=== PATIENT | male | born 1990 | race American Indian/Alaskan Native ===

== ENCOUNTER 2018-03-09 07:38 | Inpatient (IN) | payer OTHER ==
[~2018-03-09] VITALS: Ht 172.7 cm; Wt 110.9 kg
[~2018-03-09 07:38] MED LIST: ALBUTEROL SULF8.5 GM INH; FLOMAX0.4 MG PO; PERCOCET 5-3251 EACH PO; ZOFRAN4 MG PO
[2018-03-09] MEDS ORDERED: BENADRYL25 MG PO (14:24)
--- NOTE | 2018-03-10 22:51 | EKG ---
[facility] [address] [facility] [place] [address] Signed Normal sinus rhythm with sinus arrhythmia Normal ECG No previous ECGs available Confirmed by JEROMY ARREDONDO MD ([id number]) on 03/10/2018 10:51:13 PM Electronically Signed By: JEROMY ARREDONDO MD 03/10/18 2251 PATIENT NAME: CODY ROJAS Electrocardiogram DATE OF : 86 PHYSICIAN: JEROMY ARREDONDO MD REPORT #: [id number] REPORT IS CONFIDENTIAL AND NOT TO BE RELEASED WITHOUT AUTHORIZATION
[2018-03-11] MEDS ORDERED: CEPHALEXIN500 MG PO (11:47)
[2018-03-11] MEDS ORDERED: METRONIDAZOLE500 MG PO (11:48)
== END 2018-03-11 12:50 | disposition home or self-care (01) | DRG 392 ==
LOC: ED 07:38 → MS 09:51
PROVIDERS: ADMIT Internal Medicine
DX: K57.32 Diverticulitis of large intestine without perforation or abscess without bleeding (principal); J45.909 Unspecified asthma, uncomplicated
CPT/HCPCS: 36415; 74176; 80048; 81001; 85025; 93005; 93010; 96374; 96375; 99285; J0696; J0744; J0780; J1170; J1650; J1885; J2405; J7030

== ENCOUNTER 2019-12-09 14:37 | Emergency (ER) | payer OTHER ==
[~2019-12-09] VITALS: Ht 172.7 cm; Wt 110.9 kg
[~2019-12-09 14:37] MED LIST changes: +BENADRYL25 MG PO; +CEPHALEXIN500 MG PO; +METRONIDAZOLE500 MG PO
[2019-12-09] MEDS ORDERED: KEPPRA500 MG PO (17:44)
== END 2019-12-09 20:08 | disposition home or self-care (01) ==
LOC: ED 14:37
DX: G40.909 Epilepsy, unspecified, not intractable, without status epilepticus (principal); Z87.891 Personal history of nicotine dependence
CPT/HCPCS: 80053; 83735; 85025; 96361; 96374; 96375; 96376; 99285-25; G0480; J1953; J2060; J7030; J7060

== ENCOUNTER 2020-01-13 09:54 | Emergency (ER) | payer OTHER ==
[~2020-01-13] VITALS: Ht 172.7 cm; Wt 102.3 kg
[~2020-01-13 09:54] MED LIST changes: +KEPPRA500 MG PO
[2020-01-13] MEDS ORDERED: KEPPRA500 MG PO (10:59)
== END 2020-01-13 11:08 | disposition home or self-care (01) ==
LOC: ED 09:54
DX: G40.909 Epilepsy, unspecified, not intractable, without status epilepticus (principal); S01.552A Open bite of oral cavity, initial encounter; X58.XXXA Exposure to other specified factors, initial encounter; Z87.891 Personal history of nicotine dependence; Z79.899 Other long term (current) drug therapy
CPT/HCPCS: 70450; 99284-25

== ENCOUNTER 2020-02-19 12:22 | Emergency (ER) | payer OTHER ==
[~2020-02-19] VITALS: Ht 172.7 cm; Wt 102.3 kg
[2020-02-19] MEDS ORDERED: BENADRYL25 MG PO (12:34)
== END 2020-02-19 13:30 | disposition home or self-care (01) ==
LOC: ED 12:22
DX: S61.412A Laceration without foreign body of left hand, initial encounter (principal); F17.200 Nicotine dependence, unspecified, uncomplicated; J45.909 Unspecified asthma, uncomplicated; W25.XXXA Contact with sharp glass, initial encounter
CPT/HCPCS: 73130; 99283-25

== ENCOUNTER 2021-04-28 20:01 | Emergency (ER) | payer OTHER ==
[~2021-04-28] VITALS: Ht 172.7 cm; Wt 102.3 kg
[2021-04-28] MEDS ORDERED: FLUTICASONE-SA1 EAC4 (20:19)
[2021-04-28] MEDS ORDERED: VENTOLIN HFA18 GM (20:19)
[2021-04-28] MEDS ORDERED: LORATADINE10 MG (20:19)
[2021-04-28] MEDS ORDERED: LEVETIRACETAM1000 MG (20:20)
[2021-04-28] MEDS ORDERED: TRAMADOL HCL50 MG PO (21:17)
== END 2021-04-28 21:43 | disposition home or self-care (01) ==
LOC: ED 20:01
DX: T25.221A Burn of second degree of right foot, initial encounter (principal); X16.XXXA Contact with hot heating appliances, radiators and pipes, initial encounter; J45.909 Unspecified asthma, uncomplicated; Z79.899 Other long term (current) drug therapy
CPT/HCPCS: 99283

== ENCOUNTER 2022-01-04 23:29 | Emergency (ER) | payer OTHER ==
[~2022-01-04] VITALS: Ht 172.7 cm; Wt 104.3 kg
[~2022-01-04 23:29] MED LIST changes: +FLUTICASONE-SA1 EAC4; +LEVETIRACETAM1000 MG; +LORATADINE10 MG; +TRAMADOL HCL50 MG PO; +VENTOLIN HFA18 GM
== END 2022-01-05 00:54 | disposition home or self-care (01) ==
LOC: ED 23:29
DX: G40.409 Other generalized epilepsy and epileptic syndromes, not intractable, without status epilepticus (principal); J45.909 Unspecified asthma, uncomplicated; Z79.899 Other long term (current) drug therapy
CPT/HCPCS: 99284

== ENCOUNTER 2024-07-31 02:47 | Emergency (ER) | payer OTHER ==
[~2024-07-31] VITALS: Ht 172.7 cm; Wt 106.0 kg
[~2024-07-31 02:47] MED LIST changes: +BUDESONIDE-FO10.2 G1 INH; +CALCIUM500 MG PO; +CELECOXIB200 MG PO; +HYDROCODON-ACE1 EA11 PO; +KEPPRA1000 MG PO; +LEVOTHYROXINE75 MCG PO; +ONDANSETRON ODT8 MG PO
[2024-07-31 03:09] LABS: BASOPHILS 0.5 % (0-2); EOSINOPHILS 0.3 % (0-6); HEMATOCRIT 46.5 % (35.0-50.0); HEMOGLOBIN 15.6 g/dL (12.0-18.0); LYMPHOCYTES 12.1 % (24-44); MCH 29.2 (27-36); MCHC 33.5 g/dl (30-36); MCV 87.3 fl (81-99); MONOCYTES 4.9 % (0-12); NEUTROPHILS 82.2 % (39-80); PLATELET COUNT 219 K/uL (140-440); RBC 5.32 M/ul (4.3-5.7); RDW 14.7 (10.5-15.0)
[2024-07-31] MEDS ORDERED: ondansetron HCL 4 MG/2 ML VIAL IV ONE (03:15)
[2024-07-31] MEDS ORDERED: LORazepam 2 MG/ML VIAL IV ONE (03:15)
[2024-07-31] MEDS ORDERED: levETIRAcetam 500 MG/5 ML VIAL IV ONE (03:15)
[2024-07-31] MEDS ORDERED: LACTATED RINGER'S 1,000 ML IV ONE (03:15)
[2024-07-31 03:31] LABS: ALBUMIN 4.2 g/dL (3.4-5.0); ANION GAP 20.4 (7-21); BILIRUBIN, TOTAL 0.7 ng/dL (0.2-1.0); BUN/CREATININE RATIO 8.27 (6.0-28.6); CREATININE, SERUM 1.33 mg/dL (0.70-1.30); POTASSIUM 3.4 mmol/L (3.5-5.1); PROTEIN, TOTAL 8.4 g/dL (6.4-8.2)
[2024-07-31] MEDS ORDERED: ATIVAN0.5 MG PO (05:55)
[2024-07-31 06:40] VITALS: BP 110/71
[2024-08-01 05:09] LABS: KEPPRA (LEVETIRACETAM) 26 ug/mL (10-40)
== END 2024-07-31 07:13 | disposition home or self-care (01) ==
LOC: ED 02:47
PROVIDERS: Family Medicine
DX: G40.909 Epilepsy, unspecified, not intractable, without status epilepticus (principal); Z79.899 Other long term (current) drug therapy
CPT/HCPCS: 36415; 70450; 80053; 80177; 85025; 96361; 96374; 96375; 99284-25; J1953; J2060; J2405; J7121

== ENCOUNTER 2024-11-02 17:29 | Observation (INO) | payer OTHER ==
[~2024-11-02] VITALS: Ht 172.7 cm; Wt 101.4 kg
[~2024-11-02 17:29] MED LIST changes: +ATIVAN0.5 MG PO; -VENTOLIN HFA18 GM; +VENTOLIN HFA18 GM INH
[2024-11-02 18:00] LABS: BASOPHILS 0.2 % (0-2); HEMATOCRIT 49.6 % (35.0-50.0); HEMOGLOBIN 16.4 g/dL (12.0-18.0); LYMPHOCYTES 5.3 % (24-44); MCH 29.1 (27-36); MCHC 33.1 g/dl (30-36); MCV 88.1 fl (81-99); MONOCYTES 5.6 % (0-12); NEUTROPHILS 88.9 % (39-80); PLATELET COUNT 233 K/uL (140-440); RBC 5.63 M/ul (4.3-5.7); RDW 14.2 (10.5-15.0)
[2024-11-02] MEDS ORDERED: KETOROLAC TROMETHAMINE 30 MG/ML VIAL IV ONE (18:00)
[2024-11-02] MEDS ORDERED: levETIRAcetam 500 MG/5 ML VIAL IV ONE (18:00)
[2024-11-02] MEDS ORDERED: SODIUM CHLORIDE 0.9% 1,000 ML IV PRN (18:00)
[2024-11-02 18:13] LABS: ALBUMIN 4.5 g/dL (3.4-5.0); ALBUMIN/GLOBULIN RATIO 1.07 (1.1-2.4); ANION GAP 17.7 (7-21); BILIRUBIN, TOTAL 0.4 ng/dL (0.2-1.0); BUN/CREATININE RATIO 10.15 (6.0-28.6); CREATININE, SERUM 1.28 mg/dL (0.70-1.30); POTASSIUM 3.7 mmol/L (3.5-5.1); PROTEIN, TOTAL 8.7 g/dL (6.4-8.2)
[2024-11-02] MEDS ORDERED: LORazepam 2 MG/ML VIAL ONE (18:26)
[2024-11-02] MEDS ORDERED: LORazepam 2 MG/ML VIAL IV ONE (18:45)
[2024-11-02] MEDS ORDERED: LACTATED RINGER'S 1,000 ML IV ONE (21:15)
[2024-11-02 22:03] LABS: BILIRUBIN, URINE NEGATIVE (negative); BLOOD/HGB, URINE NEGATIVE (Negative); KETONE, URINE SMALL (Negative); LEUK ESTERASE, URINE NEGATIVE (negative); NITRITE, URINE NEGATIVE (negative)
[2024-11-02 22:09] LABS: BACTERIA, URINE NONE SEEN /hpf (negative); CASTS, URINE NONE SEEN \\lpf; COLLECTION TYPE, URINE CLEAN CATCH; CRYSTALS, URINE NONE SEEN (0-1+); EPITHELIAL CELLS, URINE NONE SEEN /lpf (0-1+); RED BLOOD CELLS, URINE 0-1 /hpf (0-5); REFLEX CULTURE, URINE No (No); WHITE BLOOD CELLS, URINE 0-1 /HPF (0-5)
[2024-11-02 22:21] LABS: AMPHETAMINES, URINE NEGATIVE (NEGATIVE); BARBITURATES, URINE NEGATIVE (NEGATIVE); BENZODIAZEPINE, URINE NEGATIVE (NEGATIVE); BUPRENORPHINE, URINE NEGATIVE (NEGATIVE); CANNABINOID, URINE POSITIVE (NEGATIVE); COCAINE, URINE NEGATIVE (NEGATIVE); ECSTASY, URINE NEGATIVE (NEGATIVE); FENTANYL, URINE NEGATIVE (NEGATIVE); METHADONE, URINE NEGATIVE (NEGATIVE); OPIATES, URINE NEGATIVE (NEGATIVE); OXYCODONE, URINE NEGATIVE (NEGATIVE); PHENCYCLIDINE, URINE NEGATIVE (NEGATIVE)
[2024-11-02 23:22] VITALS: BP 118/73
[2024-11-02] MEDS ORDERED: ACETAMINOPHEN 325 MG TAB PO PRN (23:30)
[2024-11-02] MEDS ORDERED: LORazepam 2 MG/ML VIAL IV PRN (23:30)
[2024-11-02] MEDS ORDERED: ondansetron HCL 4 MG/2 ML VIAL IV PRN (23:30)
[2024-11-03] VITALS (20 sets, daily range): BP systolic 96–138; BP diastolic 54–80
--- NOTE | 2024-11-03 00:07 | NUR ---
PATIENT ARRIVED TO UNIT 11/02/24 AT 23:15. BEDSIDE REPORT RECEIVED FROM VIC SENIOR. PATIENT STOOD AND WALKED FROM RNEY TO BED WITH SBA. ORIENTED TO NURSING STAFF, ROOM AND CALL LIGHT FUNCTIONS. REVIEWED PATIENT SAFETY EDUCATION WITH PATIENT AND HIS MOTHER, LINDA. EDUCATION INCLUDED USE OF BED ALARM, SEIZURE PADS, CALL LIGHT USE AND FALL PREVENTION. PATIENT VERBALIZED UNDERSTANDING. IV PATENT AND DRAWS BACK BLOOD EASILY. PATIENT IS AOX3 BUT SLOW TO ANSWER AND DROWSY, HOWEVER, ACTIVELY PARTICIPATED IN ADMISSION AND ASSESSMENT. PATIENT AWARE OF NPO STATUS AND EDUCATION PROVIDED ON SEIZURES AND ASPIRATION RISK. VERBALIZED UNDERSTANDING. REVIEWED POC WITH PATIENT AND MOTHER. BOTH DENY QUESTIONS OR CONCERNS. MOTHER LINDA WENT HOME TO REST. PATIENT CURRENTLY RESTING IN BED AND DESIRES TO SLEEP. BED IN LOWEST POSITION/LOCKED, CALL LIGHT IN REACH, SEIZURE PADS IN PLACE, BED EXIT ALARM ON.
[2024-11-03] MEDS ORDERED: ALBUTEROL SULFATE 0.083% 3 ML VIAL INH PRN (00:45)
--- NOTE | 2024-11-03 00:54 | NUR ---
REVIEWED NPO STATUS WITH DR. KNAPP. ORDER RECEVIED THAT IF PATIENT IS FULLY AWAKE, ALERT, ORIENTED AND ABLE TO TAKE PO WITHOUT CONCERN FOR ASPIRATION, MAY ADVANCE DIET. ORDER ALSO RECEIVED FOR RT EVAL AND TREAT GIVEN HX OF ASTHMA AND NEED FOR O2 IN ED. RT LEAH NOTIFIED OF ORDER. NO NEEDS AT THIS TIME. PATIENT IS RESTING WITH EYES CLOSED, O2 SAT 94% ON RA.
--- NOTE | 2024-11-03 01:58 | NUR ---
PATIENT RESTING IN BED WITH EYES CLOSED. FACIAL EXPRESSION APPEARS RELAXED. RESPIRATIONS EVEN AND UNLABORED. CALL LIGHT IN REACH.
--- NOTE | 2024-11-03 03:05 | NUR ---
PATIENT'S BP READING ERRONEOUSLY. PATIENT FOUND TO BE SIDE LYING WITH ARMS CURLED ON CHEST. PATIENT FOLLOWS REQUEST TO REPOSITION SUPINE FOR PROPER BP READ. VS CHARTED. EDUCATION PROVIDED ON REPOSITIONING ARM TO A RELAXED POSITION WHEN BP CUFF INFLATES. DENIES NEEDS AT THIS TIME. CALL LIGHT IN REACH.
--- NOTE | 2024-11-03 04:17 | NUR ---
PATIENT WAKES EASILY TO NAME AND FOLLOWS DIRECTION TO REPOSITION FOR BP READ. ASSESSMENT CHARTED. PATIENT ENDORSED GENERALIZED ACHINESS. MEDICATED WITH TYLENOL PER EMAR. PATIENT'S LIP NOTED TO BE BRUISED ON INITIAL ASSESSMENT. APPEARS MORE EDEMATOUS. ICE PACK GIVEN. PATIENT VOIDED 600ML YELLOW URINE IN URINAL. WARM WASHCLOTH PROVIDED FOR PATIENT TO WIPE FACE. DENIES OTHER NEEDS AT THIS TIME. BED IN LOWEST POSITION AND LOCKED, CALL LIGHT IN REACH, SEIZURE PADS IN PLACE AND BED EXIT ALARM ON.
[2024-11-03 05:22] LABS: BASOPHILS 0.5 % (0-2); EOSINOPHILS 0.3 % (0-6); HEMATOCRIT 44.7 % (35.0-50.0); LYMPHOCYTES 21.7 % (24-44); MCH 29.4 (27-36); MCHC 33.5 g/dl (30-36); MONOCYTES 7.3 % (0-12); NEUTROPHILS 70.2 % (39-80); PLATELET COUNT 198 K/uL (140-440); RBC 5.08 M/ul (4.3-5.7); RDW 14.1 (10.5-15.0)
--- NOTE | 2024-11-03 05:30 | NUR ---
APPROXIMATELY 0450 PATIENT NOTED TO HAVE AN INCREASED HR TO THE 120S. THIS RN TO ROOM. PATIENT OPENS EYES TO NAME BUT WAS SLOW TO RESPOND AND VERBAL RESPONSES WERE CONFUSED WITH SLURRED SPEACH, DISORIENTED TO ALL EXCEPT SELF. NO INVOLUNTARY OR SPASTIC MOVEMENTS NOTED. NO TREMORS, TWITCHING OR CONVULSING NOTED, HOWEVER, PATIENT PRESENTATION CONSISTENT WITH POST-ICTAL BEHAVIOR. PATIENT COULD FOLLOW DIRECT COMMANDS. THIS RN TOUCHED PATIENTS ARM AND PATIENT HAD A HIGHTENED STARTLE REFLEX. 04:55 DR. KNAPP NOTIFIED, REVIEWED ASSESSMENT. ORDER RECEIVED TO GIVE PRN ATIVAN. CALLED DR. KNAPP BACK TO NOTIFIY OF T[place]A WHILE AT REST THROUGHOUT THE NIGHT. ORDER RECEIVED FOR CHEST XRY. ATIVAN GIVEN PER EMAR. PATIENT RESTING WITH EYES CLOSED AT THIS TIME AND APPEARS TO IN NO ACUTE DISTRESS. SEIZURE PADS REMAIN IN PLACE, CALL LIGHT IN REACH. BED LOW, LOCKED AND EXIT ALARM ON. RR 30, O2 SAT 99 ON 2L OXYMASK.
[2024-11-03 05:32] LABS: ANION GAP 15.5 (7-21); BUN/CREATININE RATIO 9.67 (6.0-28.6); CALCIUM 8.5 mg/dL (8.5-10.1); CREATININE, SERUM 0.93 mg/dL (0.70-1.30); MAGNESIUM 2.2 mg/dL (1.8-2.4); POTASSIUM 3.5 mmol/L (3.5-5.1)
--- NOTE | 2024-11-03 05:53 | NUR ---
PCXRY COMPLETED. PATIENT FOLLOWS DIRECTIONS FOR XRY. IS NOW ALERT TO SELF AND PLACE. PATIENT NOW ON ROOM AIR AT 94-96%.
--- NOTE | 2024-11-03 06:15 | NUR ---
PATIENT NOTED TO AGAIN HAVE AN INCREASE IN HR ON TELEMETRY. THIS RN IMMEDIATELY TO ROOM. PATIENT FOUND TO BE CONFUSED AGAIN, HOLDING HIS RIGHT ARM IN THE AIR AND ROLLING HIS TONGUE AND SMACKING HIS LIPS. OPENED EYES TO NAME BUT APPEARED TO HAVE A NON-SPECIFIC BLANK GAZE. NO OTHER MOVEMENT NOTED. ONCE AT REST, PATIENT DESATTED TO 87-88%, PLACED BACK ON OXYMASK AT 2L. PATIENT NODDED HEAD UP AND DOWN WHEN ASKED IF HE WAS NAUSEATED. ZOFRAN GIVEN PER EMAR. DR. KNAPP NOTIFIED, ORDER RECEIVED TO GIVE PRN ATIVAN AGAIN. GIVEN PER EMAR. PATIENT NOW RESTING IN BED WITH EYES CLOSED. RR 23-27, O2 SAT 97% 2L OXYMASK, HR 85, SINUS RHYTHM.
--- NOTE | 2024-11-03 06:40 | NUR ---
PATIENT'S MOTHER LINDA UPDATED. SHE REPORTS THE ACTIVITY NOTED BY THIS RN IS PTS "NORMAL" AFTER HE HAS HAD A FEW LARGER SEIZURES. SHE REPORTS IT LASTS A FEW HOURS TO A DAY OR SO. LINDA REPORTS IT IS CHARACTERIZED BY CONFUSION, LIP SMACKING AND PATIENT ATTEMPTING TO TOUCH HIS INDEX FINGER TO HIS THUMB. PTS MOTHER TO COME IN THIS AM TO BE HERE WHEN DR. RA WHITTEN.
[2024-11-03] MEDS ORDERED: POTASSIUM CHLORIDE 40 MEQ in DEXTROSE 5% 250 ML IV ONE (07:30)
[2024-11-03] MEDS ORDERED: levETIRAcetam 500 MG/5 ML VIAL IV SCH ×3 (07:30→21:00)
--- NOTE | 2024-11-03 08:38 | NUR ---
ASSESSMENT COMPLETE. PATIENT RESTING IN BED AND SEIZURE PADS REMAIN ON. PT IS DROWSY, BUT DOES AWAKEN EASILY AND IS ORIENTED X4. PT'S MOTHER LINDA IN ROOM. PT GIVEN DOSE OF KEPPRA IV THIS AM BUT WILL RECEIVE MORE, HIS NORMAL HOME DOSE IS HIGHER. NO SEIZURE ACTIVITY THUS FAR B UT WILL CONTINUE TO MONITOR FOR SUCH. PT DENIES NEEDING TO VOID AT THIS TIME. LUNGS ARE CLEAR, BUT PATIENT IS TACHYPNEIC IN THE UPPER 20s TO MID 30s AT TIME. PT DOES ALSO ENDORSE A SORE NECK, RATING IT 8/10.
--- NOTE | 2024-11-03 08:49 | NUR ---
HR NOTED TO BE INCREASED TO THE 120-130s PATIENT WAS REPOSITIONING HIMSELF IN BED. A FEW MOMENTS LATER, SP02 NOTED TO BE DROPPING DOWN TO LOW 77%. PT PROMPTED TO TAKE A COUPLE DEEP BREATHS BUT IS NOTED TO BE APNEIC AT TIMES. OXYGEN REAPPLIED VIA OXYMASK 2 L. PATIENT ALSO BOOSTED IN BED AND SAT UP HIGHER. PATIENT STILL ABLE TO RESPOND, ANSWER QUESTIONS BUT DOES REMAIN DROWSY. DR. KNAPP IN CCU TO SEE PATIENT AND PLAN OF CARE DISCUSSED. KEPPRA DOSE TO BE ADJUSTED UP TO MATCH DOSE HE RECEIVES AT HOME. PT'S MOTHER REMAINS IN ROOM.
[2024-11-03] MEDS ORDERED: levETIRAcetam 500 MG/5 ML VIAL IV STA (08:51)
--- NOTE | 2024-11-03 09:57 | NUR ---
MED REC COMPLETE
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
[2024-11-03] MEDS ORDERED: PHARMACY RENAL DOSE ADJUSTMENT 1 DOSE MISC PO SCH (12:00)
--- NOTE | 2024-11-03 14:15 | NUR ---
PATIENT HAS BEEN RESTING IN BED AFTER LUNCH. PT WAS ABLE TO EAT HIS CHICKEN NOODLE SOUP AND A FEW BITES OF HIS SANDWICH. PT EARLIER HAD STATED HE WAS COLD AND A WARM BLANKET WAS GIVEN. THEN AROUND 1410, PT'S MOTHER SIGNALS THIS RN THAT PT IS STARTING TO DO HIS LIP SMACKING AND FINGER TOUCHING, INDEX FINGER TO HIS THUMB, THAT HE DOES WHEN HE IS SEIZING. DR. KNAPP IN UNIT AND NOTIFIED AND ARRIVES TO BEDSIDE. PRN ATIVAN 2 MG GIVEN. PT IS RESPONSIVE TO HIS NAME AND DOES ANSWER SOME QUESTIONS, BUT IS DEFINTELY MORE DROWSY THAN BEFORE. HR WAS UP TO THE 130s AT IT'S HIGHEST AND IS NOW BACK TO THE 80s. BLANKETS PULLED OFF PATIENT. TEMP 99.1 AT THIS TIME.
--- NOTE | 2024-11-03 15:40 | NUR ---
PATIENT RESTING IN BED, ASLEEP AT THIS TIME. HR IN THE 80s. PT'S MOTHER REMAINS IN ROOM WELL. WILL CONTINUE TO MONITOR.
--- NOTE | 2024-11-03 16:59 | NUR ---
PATIENT HAS BEEN UP IN CHAIR NOW AND IS WAITING FOR DINNER. PATIENT AMBULATED IN HALLWAY EARLIER WITH THIS RN A STANDBY ASSIST, TOLERATING WELL, BUT DID ENDORSE A LITTLE DIZZYNESS. PT'S MOM REMAINS IN ROOM. DENIES FURTHER NEEDS.
--- NOTE | 2024-11-03 19:20 | NUR ---
REPORT RECEIVED FROM VIC JAIN. PATIENT IS DROWSY BUT INTERACTS WITH THIS RN. MOTHER IN ROOM. WARM BLANKET PROVIDED. CALL LIGHT IN REACH.
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
[2024-11-03] MEDS ORDERED: levETIRAcetam 500 MG TAB PO SCH (21:00)
--- NOTE | 2024-11-03 22:07 | NUR ---
PATIENT ATTEMPTED TO GET OOB WITHOUT ASSISTANCE. RE-EDUCATED ON USING CALL LIGHT WHEN HE NEEDS TO GET UP, VERBALIZED UNDERSTANDING. OOBTBR TO VOID, PATIENT FORGOT TO USE URINAL. PASSED LARGE AMOUNT OF FLATUS. BACK TO BED. WARM BLANKET PROVIDED. PATIENT DENIES OTHER NEEDS OR CONCERNS. ADJUSTED BED EXIT ALARM TO MORE SENSITIVE SETTING AND UPDATED PATIENT ON SETTING CHANGE. CALL LIGHT IN REACH. FRESH WATER PROVIDED.
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
[2024-11-04 00:04] VITALS: BP 131/73
--- NOTE | 2024-11-04 00:34 | NUR ---
PATIENT RESTING QUIETLY IN BED WITH EYES CLOSED. RR 29, HR 88, O2 SAT 91-92% RA. BED EXIT ALARM REMAINS ON. CALL LIGHT IN REACH.
[2024-11-04 02:00] VITALS: BP 118/68
--- NOTE | 2024-11-04 02:04 | NUR ---
PATIENT CONTINUES TO REST IN BED WITH EYES CLOSED. RR 22, O2 SAT 94% RA. FACIAL EXPRESSION APPEARS RELAXED. CALL LIGHT IN REACH, BED EXIT ALARM ON.
--- NOTE | 2024-11-04 03:35 | NUR ---
INCREASED HR NOTED ON TELEMETRY. UPON ENTERING ROOM, PATIENT FOUND TO BE REPOSITIONING IN BED. AOX3. BATHROOM OFFERED BUT PATIENT DECLINED NEED AT THIS TIME. WARM BLANKET PROVIDED. CALL LIGHT IN REACH, BED EXIT ALARM ON.
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
[2024-11-04 04:00] VITALS: BP 104/55
--- NOTE | 2024-11-04 05:01 | NUR ---
LAB IN ROOM TO DRAW BLOOD. PATIENT REQUESTS THERMOSTAT BE TURNED UP, COMPLETED REQUEST. DENIES OTHER NEEDS. CALL LIGHT IN REACH, BED EXIT ALARM ON.
[2024-11-04 05:10] LABS: BASOPHILS 0.5 % (0-2); EOSINOPHILS 0.3 % (0-6); HEMATOCRIT 45.8 % (35.0-50.0); HEMOGLOBIN 15.3 g/dL (12.0-18.0); LYMPHOCYTES 24.5 % (24-44); MCH 29.5 (27-36); MCHC 33.4 g/dl (30-36); MCV 88.4 fl (81-99); MONOCYTES 8.7 % (0-12); PLATELET COUNT 190 K/uL (140-440); RBC 5.18 M/ul (4.3-5.7); RDW 14.1 (10.5-15.0)
--- NOTE | 2024-11-04 05:21 | NUR ---
PATIENT OOB TO CHAIR. REPORTS HE IS FEELING MUCH LESS GROGGY THIS MORNING. INQUIRED ABOUT DISCHARGE. REMINDED PATIENT THAT DOCTOR WILL ROUND LATER THIS MORNING. SNACK AND SODA GIVEN PER REQUEST. CALL LIGHT IN REACH. WARM BLANKETS PROVIDED.
[2024-11-04 05:26] LABS: ANION GAP 13.4 (7-21); BUN/CREATININE RATIO 7.29 (6.0-28.6); CALCIUM 8.8 mg/dL (8.5-10.1); CREATININE, SERUM 0.96 mg/dL (0.70-1.30); POTASSIUM 3.4 mmol/L (3.5-5.1)
[2024-11-04 06:00] VITALS: BP 119/81
[2024-11-04] MEDS ORDERED: POTASSIUM CHLORIDE 10 MEQ TABCR PO ONE (06:45)
[2024-11-04] MEDS ORDERED: levETIRAcetam 500 MG TAB PO ONE (07:30)
[2024-11-04 08:01] VITALS: BP 133/89
--- NOTE | 2024-11-04 08:06 | NUR ---
IN PATIENT'S ROOM FOR AM ASSESSMENT, VITALS AND BREAKFAST. PT UP IN CHAIR AND STATES HE IS DOING MUCH BETTER, AND READY TO D/C HOME. PT'S MOTHER LINDA ALSO IN ROOM. PT HASN'T HAD ANY SEIZURE LIKE ACTIVITY SINCE AROUND 0000 THIS AM. HR IN THE 70-80s. PT WILL D/C HOME AFTER BREAKFAST.
[2024-11-04] MEDS ORDERED: ENOXAPARIN SODIUM 40 MG/0.4 ML SYR SUB-Q SCH (09:00)
--- NOTE | 2024-11-04 09:32 | NUR ---
PATIENT D/C HOME AT 0830 WITH ALL PERSONAL BELONGINGS, ALONGSIDE HIS MOTHER. ALL QUESTIONS ANSWERED BEST POSSIBLE AND PATIENT AND MOTHER AGREE TO CALL TO MAKE FOLLOW UP APPOINTMENT IN NEXT COUPLE OF DAYS. NO SEIZURE LIKE ACTIVITY NOTED THIS AM.
[2024-11-05 12:32] LABS: KEPPRA (LEVETIRACETAM) 15 ug/mL (10-40)
== END 2024-11-04 08:30 | disposition home or self-care (01) ==
LOC: ED 17:29 → CCU 17:31
PROVIDERS: Emergency Medicine; ADMIT Student in an Organized Health Care Education/Training Program; ATTEND Student in an Organized Health Care Education/Training Program
DX: G40.909 Epilepsy, unspecified, not intractable, without status epilepticus (principal); E87.6 Hypokalemia
CPT/HCPCS: 36415; 70450; 71045; 80048; 80053; 80177; 80307; 81001; 83735; 85025; 85060; 94667; 96374; 96375; 96376; 99285-25; A9270; G0378; J1885; J1953; J2060; J2405; J3480; J7030; J7060; J7121